=== PATIENT | male | born 1955 | race Caucasian/White ===

== ENCOUNTER → 2020-03-17 | Outpatient (CLI) | payer OTHER ==
[~2020-03-17] VITALS: Ht 165.1 cm; Wt 59.0 kg
[~2020-03-17] MED LIST: ACTIVE-Q200 MG PO; B COMPLEX1 EACH PO; CENTRUM SILVER1 EAC4 PO; COLLAGEN POWDER PO; CORLANOR7.5 MG PO; D-RIBOSE1 GM PO; KRILL OIL500 MG PO; LEVOTHYROXINE88 MCG PO; LO-DOSE ASPIRIN81 M1 PO; LOSARTAN POTASS50 MG PO; MACRODANTIN50 MG PO; MAGNESIUM250 M1 PO; PREGABALIN75 MG PO; SERTRALINE HCL50 MG PO; TURMERIC500 M2 PO; VITAMIN D3125 MC1 PO; VITAMIN K100 MCG PO; [UNRECOGNIZED DRUG - OTHER] PO
== END | disposition home or self-care (01) ==
LOC: LAB 08:00 → OR 03-20 08:25 → EDSTATUS 03-20 10:14 → OR 03-20 12:21
PROVIDERS: ATTEND Ophthalmology
DX: Z01.812 Encounter for preprocedural laboratory examination (principal); Z20.828 Contact with and (suspected) exposure to other viral communicable diseases; H02.834 Dermatochalasis of left upper eyelid; H02.831 Dermatochalasis of right upper eyelid; F32.9 Major depressive disorder, single episode, unspecified; F41.9 Anxiety disorder, unspecified; I10 Essential (primary) hypertension; E03.9 Hypothyroidism, unspecified; I48.91 Unspecified atrial fibrillation; I25.10 Atherosclerotic heart disease of native coronary artery without angina pectoris; Z98.890 Other specified postprocedural states; Z79.899 Other long term (current) drug therapy; Z79.01 Long term (current) use of anticoagulants

== ENCOUNTER → 2020-04-14 | Outpatient (CLI) | payer OTHER ==
[~2020-04-14] MED LIST changes: +MTHF PO
== END ==
LOC: LAB 08:46
PROVIDERS: ATTEND Ophthalmology
DX: Z01.812 Encounter for preprocedural laboratory examination (principal); Z20.828 Contact with and (suspected) exposure to other viral communicable diseases

== ENCOUNTER 2020-04-17 06:16 | Day surgery (SDC) | payer OTHER ==
[~2020-04-17] VITALS: Ht 165.1 cm; Wt 59.0 kg
--- NOTE | ~2020-04-17 | O ---
[facility] [place] [address] OPERATIVE REPORT Name: NNAMDI FRANCIS Room #: 150-5 [facility]..#: [id number] Admission: 04/17/20 Attend Phys: Jose Maria Zamarripa MD Discharge: Date of : 53 Report #: [id number] THIS REPORT FOR: cc: VIN MARSH Physician not on staff Jose Maria Zamarripa MD ~ CC: VIN Marsh DO Physician staff Jose Maria Zamarripa DATE OF SERVICE: 04/17/2020 SURGEON: Jose Maria Zamarripa MD FACTORY LABORER: None. PREOPERATIVE DIAGNOSIS: Bilateral upper lid dermatochalasia with superior visual field defect. POSTOPERATIVE DIAGNOSIS: Bilateral upper lid dermatochalasia with superior visual field defect. OPERATION PERFORMED: Bilateral upper lid functional blepharoplasty. ANESTHESIA: Local with IV sedation. COMPLICATIONS: None. INDICATIONS FOR SURGERY: This patient has acquired upper lid dermatochalasia with superior visual field loss both eyes because of excessive upper lid tissues to include skin and fat. Visual field testing demonstrates dense superior visual defects. Retesting with the upper lid elevated shows an improvement in visual field loss of over 30% and in excess of 12 degrees. The current procedures are undertaken in order to improve the patient's visual function. Informed consent was obtained to include but not limited to the loss of vision, bleeding, infection, scarring, failure to improve the problem and need for further surgery. DESCRIPTION OF OPERATION: The patient was taken to the operating room, where 2% Xylocaine with epinephrine mixed with equal parts of 0.75% Marcaine with Wydase was administered transcutaneously to each upper lid. The patient was then prepped and draped in the usual sterile fashion and a skin-marking pen was then utilized to outline an upper lid crease that was symmetrical on each side. [address] [place] [address] OPERATIVE REPORT Name: NNAMDI FRANCIS Room #: 150-5 [facility]#: [id number] Admission: 04/17/20 Attend Phys: Jose Maria Zamarripa MD Discharge: Date of : 53 Report #: [id number] Graefe forceps were then used to quantitate the redundant upper lid skin and it was similarly outlined. The incisions were then made with Latanya scissors and a skin-muscle flap removed from each side with high-temp cautery. Hemostasis was achieved with the monopolar cautery as it was throughout the case. The orbital septum was then identified and the central and medial fat pads were inspected. The redundant soft tissue was then sculpted with the monopolar cautery. The upper lid crease was then reformed with tightening of the pretarsal orbicularis muscle. The upper lid crease was then further reformed with multiple interrupted 6-0 chromic sutures. The skin was then closed with a running 6-0 plain gut suture. The wound was then cleaned and dressed with ophthalmic antibiotic ointment and a nonstick dressing. The patient was transported to the recovery area, where cold compresses were applied, having tolerated the procedure well with no anesthetic or operative complications being noted. By: [id number] Jose Maria Zamarripa MD /nt
== END 2020-04-17 08:45 | disposition home or self-care (01) ==
LOC: EDSEX → OR 06:16 → TBA 06:40 → OR 08:42
PROVIDERS: ATTEND Ophthalmology
DX: H02.834 Dermatochalasis of left upper eyelid (principal); H02.831 Dermatochalasis of right upper eyelid; H53.462 Homonymous bilateral field defects, left side; H53.461 Homonymous bilateral field defects, right side; I10 Essential (primary) hypertension; I25.10 Atherosclerotic heart disease of native coronary artery without angina pectoris; E03.9 Hypothyroidism, unspecified; I48.91 Unspecified atrial fibrillation; F32.9 Major depressive disorder, single episode, unspecified; F41.9 Anxiety disorder, unspecified; Z98.890 Other specified postprocedural states; Z79.899 Other long term (current) drug therapy; Z85.71 Personal history of Hodgkin lymphoma; Z79.01 Long term (current) use of anticoagulants; Z95.2 Presence of prosthetic heart valve
CPT/HCPCS: 50010; 50101; 50386; 50398; 51636; 56531; 62110; 62850; 70005